=== PATIENT | female | born 2000 | race African-American/Black ===

== ENCOUNTER 2023-12-12 15:48 | Emergency (ER) | payer MEDICAID, OTHER ==
[~2023-12-12] VITALS: Ht 170.2 cm; Wt 58.3 kg
[2023-12-12 17:26] LABS: Basophils # (auto) 0 10 ^3/uL (0-0.2); Basophils % (auto) 0.4 % (0.0-2.0); Eosinophils # (auto) 0.1 10 ^3/uL (0-0.8); Eosinophils % (auto) 0.8 % (0.0-7.0); Hematocrit 40.9 % (36.0-46.0); Hemoglobin 13.8 g/dL (12.2-16.2); Lymphocytes # (auto) 1.7 10 ^3/uL (0.4-5.4); Lymphocytes % (auto) 21.6 % (10.0-50.0); Mean Corpuscular Hemoglobin 31.7 pg (28.0-32.0); Mean Corpuscular Hgb Conc. 33.8 g/dL (32.0-36.0); Mean Corpuscular Volume 93.8 fL (80.0-100.0); Monocytes # (auto) 0.8 10 ^3/uL (0-1.3); Neutrophils # (auto) 5.4 10 ^3/uL (1.6-8.6); Neutrophils % (auto) 67.2 % (37.0-80.0); Nucleated Red Blood Cells % 0.1 %; Red Blood Cells 4.36 10^6/uL (4.0-5.20); Red Cell Distribution Width 12.6 % (11.8-14.3); White Blood Cell 8.1 10^3/uL (4.4-10.8)
[2023-12-12 18:31] LABS: Urine Bacteria None Seen /hpf (None Seen)
[2023-12-12 19:08] LABS: Urine Blood Negative /uL (Negative); Urine Clarity Clear (Clear); Urine Color Yellow (Yellow); Urine Mucus FEW (None Seen); Urine Protein, UAD TRACE (Negative); Urine Specific Gravity 1.024 (1.001-1.035); Urine Urobilinogen 4 mg/dL (Negative); Urine WBC 1 /hpf (0 - 5)
[2023-12-12 19:19] VITALS: BP 115/78; TEMP 98
[2023-12-12 19:20] VITALS: PULSE 78; RESP 18; O2SAT 100
== END 2023-12-12 20:38 | disposition left against medical advice (07) ==
LOC: ER 15:48
DX: O20.9 Hemorrhage in early pregnancy, unspecified (principal); R10.2 Pelvic and perineal pain; Z3A.08 8 weeks gestation of pregnancy
CPT/HCPCS: 36415; 76801; 81001; 84702; 85025

== ENCOUNTER 2024-08-23 13:30 | Emergency (ER) | payer MEDICAID ==
[~2024-08-23] VITALS: Ht 170.2 cm; Wt 65.4 kg
[2024-08-23 13:34] VITALS: BP 132/89; RESP 20; O2SAT 97
[2024-08-23 14:03] LABS: Basophils # (auto) 0 10 ^3/uL (0-0.2); Basophils % (auto) 0.4 % (0.0-2.0); Eosinophils # (auto) 0.1 10 ^3/uL (0-0.8); Eosinophils % (auto) 1.4 % (0.0-7.0); Lymphocytes # (auto) 1.8 10 ^3/uL (0.4-5.4); Lymphocytes % (auto) 26.2 % (10.0-50.0); Mean Corpuscular Hemoglobin 32.4 pg (28.0-32.0); Mean Corpuscular Hgb Conc. 35.5 g/dL (32.0-36.0); Mean Corpuscular Volume 91.2 fL (80.0-100.0); Monocytes # (auto) 0.8 10 ^3/uL (0-1.3); Monocytes % (auto) 11.6 % (0.0-12.0); Neutrophils # (auto) 4.2 10 ^3/uL (1.6-8.6); Neutrophils % (auto) 60.4 % (37.0-80.0); Nucleated Red Blood Cells % 0.1 %; Platelet Count (auto) 354 10^3/uL (140-450); Red Blood Cells 4.93 10^6/uL (4.0-5.20); Red Cell Distribution Width 12.7 % (11.8-14.3)
[2024-08-23 14:14] LABS: Alanine Aminotransferase 11 U/L (7-40); Albumin 4.6 g/dL (3.2-4.8); Alkaline Phosphatase 57 U/L (46-116); Anion Gap 11 (5-15); Bilirubin, Total 0.6 mg/dL (0.2-1.0); Calcium 10.3 mg/dL (8.7-10.4); Carbon Dioxide 22 mmol/L (20-31); Chloride 101 mmol/L (98-107)
[2024-08-23 14:15] LABS: Total Protein 7.6 g/dL (5.7-8.2)
[2024-08-23 14:23] LABS: Aspartate Aminotransferase 12 U/L (13-40); Blood Urea Nitrogen 6 mg/dL (9-23); Glucose 117 mg/dL (74-106); Potassium 3.2 mmol/L (3.5-5.1); Sodium 134 mmol/L (136-145)
--- NOTE | 2024-08-23 14:28 | ECG ---
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
[2024-08-23] MEDS: ACETAMINOPHEN 325 MG TAB PO ONE (15:00)
[2024-08-23] MEDS: SODIUM CHLORIDE 0.9% 1,000 ML IV ONE (15:24)
[2024-08-23] MEDS: ONDANSETRON HCL 4 MG/2 ML VIAL IV ONE (15:24)
[2024-08-23 16:00] VITALS: TEMP 98.1
[2024-08-23 16:21] VITALS: PULSE 80
--- NOTE | 2024-08-23 16:24 | ECG ---
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
--- NOTE | 2024-08-23 16:56 | ED.PDOC ---
History of Present Illness HPI Comments 24y F who presents to the ED for chief complaint of multiple complaints. Pt states she is currently 8 weeks and state she is having multiple complaints. Pt states she has been having chest pain, lower abdominal cramping pain, and generalized body aches. Pt rates the pain is 7/10, cramping in nature, with no associated exacerbating or relieving factors. Pt states she was at [facility] and states she was told fetus has no heart tones and to follow up with PCP.Pt otherwise denies any associated vaginal bleeding. Pt denies any other symptoms at this time. Chief Complaint: Chest Pain Time Seen by MD: 16:48 Primary Care Provider: YOLA Montano Notes: Medications Allergies: Coded Allergies: Penicillins (Verified Allergy, Severe, 05/18/24) Information Source: Patient Mode of Arrival: Ambulatory Past Medical History PAST MEDICAL HISTORY: Denies Surgical History: Denies all surgeries RESIDENTIAL LAWN SPECIALIST History: No Pertinent RESIDENTIAL LAWN SPECIALIST History Family History Family History: Reviewed,noncontributory to illness, No family hx of Cancer, No family hx of DM, No family hx of Heart liss, No family hx of HTN, No family hx ofKidney liss, No family hx of Liver liss, No family hx of Lung liss, No family hx of Stroke Social History Smoker: Non-Smoker Alcohol: Denies ETOH Use Drugs: Denies Drug Use Lives In: Home Constitutional: reports: weakness, others (body avhes); denies: chills, diaphoresis, fatigue, fever, malaise, sweats EENTM: denies: blurred vision, double vision, ear bleeding, ear discharge, ear drainage, ear pain, ear ringing, eye pain, eye redness, hearing loss, mouth pain, mouth swelling, nasal discharge, nose bleeding, nose congestion, nose pain, photophobia, tearing, throat pain, throat swelling, voice changes, others Respiratory: denies: cough, hemoptysis, orthopnea, SOB at rest, shortness of breath, SOB with excertion, stridor, wheezing, others Cardiovascular: reports: chest pain; denies: dizzy spells, diaphoresis, Dyspnea on exertion, edema, irregular heart beat, left arm pain, lightheadedness, palpitations, PND, syncope, others Gastrointestinal: reports: abdominal pain; denies: abdomen distended, blood streaked bowels, constipated, diarrhea, dysphagia, difficulty swallowing, hematemesis, melena, nausea, poor appetite, poor fluid intake, rectal bleeding, rectal pain, vomiting, others Genitourinary: denies: abnormal vagina bleeding, burning, dyspareunia, dysuria, flank pain, frequency, hematuria, incontinence, pain, , vagina discharge, urgency, others Neurological: denies: dizziness, fainting, headache, left sided numbness, left sided weakness, numbness, paresthesia, pre-existing deficit, right sided numbness, right sided weakness, seizure, speech problems, tingling, tremors, weakness, others Musculoskeletal: denies: back pain, gout, joint pain, joint swelling, muscle pain, muscle stiffness, neck pain, others Integumetry: denies: bruises, change in color, change in hair/nails, dryness, laceration, lesions, lumps, rash, wounds, others Allergic/Immunocompromised: denies: Difficulty Healing, Frequent Infections, Hives, Itching, others Hematologic/Lymphatic: denies: anemia, blood clots, easy bleeding, easy bruising, swollen glands, others Endocrine: denies: excessive hunger, excessive sweating, excessive thirst, excessive urination, flushing, intolerance to cold, intolerance to heat, unexplained weight gain, unexplained weight loss, others Psychiatric: denies: anxiety, bipolar disorder, depression, hopeless, panic disorder, schizophrenia, sleepless, suicidal, others All Other Systems: Reviewed and Negative Physical Exam General Appearance: Other (mild distress, generalized body aches and pains) HEENT: Normal ENT Inspection, Pharynx Normal, TMs Normal Neck: Full Range of Motion, Non-Tender, Normal, Normal Inspection Respiratory: Chest Non-Tender, Lungs Clear, No Accessory Muscle Use, No Respiratory Distress, Normal Breath Sounds Cardiovascular: No Edema, No JVD, No Murmur, No Gallop, Normal Peripheral Pulses, Regular Rate/Rhythm Breast Exam: Deferred Gastrointestinal: No Organomegaly, Non Tender, No Pulsatile Mass, Normal Bowel Sounds, Soft Genitalia: Deferred Pelvic: Deferred Rectal: Deferred Extremities: No calf tenderness, Normal capillary refill, Normal inspection, Normal range of motion, Non-tender, No pedal edema Musculoskeletal : Apperance: Normal Neurologic: Alert, white work cleaner II-XII nml as Tested, No Motor Deficits, Normal Affect, Normal Mood, No Sensory Deficits Cerebellar Function: Normal Reflexes: Normal Skin: Dry, Normal Color, Warm Lymphatic: No Adenopathy Was a procedure done? Was a procedure done?: No Differential Dx Considerations may include: demise, threatened miscarriage X-Ray, Labs, Meds, VS Vital Signs Date Time Temp Pulse Resp B/P (MAP) Pulse Ox O2 Delivery O2 Flow Rate FiO2 08/23/24 16:21 80 08/23/24 16:00 98.1 08/23/24 15:00 98.9 08/23/24 14:27 87 08/23/24 13:34 98.3 107 20 132/89 (103) 97 08/23/24 13:34 99 Lab Test 08/23/24 14:54 08/23/24 13:37 08/23/24 13:32 Range/Units Troponin I High Sensitivity < 3 L < 3 L </=34 ng/L Beta HCG, Quantitative 263631.9 H 1.5-4.2 mIU/mL Urine Color Yellow Yellow Urine Clarity Turbid H Clear Urine pH 6.0 5.0-9.0 Urine Specific [place] 1.032 1.001-1.035 Urine Protein 1+ H Negative Urine Ketones 1+ H Negative Urine Blood Trace H Negative /uL Urine Nitrite Negative Negative Urine Bilirubin Negative Negative Urine Urobilinogen Normal Negative mg/dL Urine Leukocyte Esterase Negative Negative /uL Urine RBC 17 0 - 4 /hpf Urine WBC 9 0 - 5 /hpf Urine Squamous Epithelial Cells Mod <5 /hpf Urine Bacteria None seen None Seen /hpf Urine Mucus Many None Seen Urine Glucose Normal Normal mg/dL White Blood Count 7.0 4.4-10.8 10^3/uL Red Blood Count 4.93 4.0-5.20 10^6/uL Hemoglobin 16.0 12.2-16.2 g/dL Hematocrit 45.0 36.0-46.0 % Mean Corpuscular Volume 91.2 80.0-100.0 fL Mean Corpuscular Hemoglobin 32.4 H 28.0-32.0 pg Mean Corpuscular Hemoglobin Concent 35.5 32.0-36.0 g/dL Red Cell Distribution Width 12.7 11.8-14.3 % Platelet Count 354 140-450 10^3/uL Mean Platelet Volume 7.8 6.9-10.8 fL Neutrophils (%) (Auto) 60.4 37.0-80.0 % Lymphocytes (%) (Auto) 26.2 10.0-50.0 % Monocytes (%) (Auto) 11.6 0.0-12.0 % Eosinophils (%) (Auto) 1.4 0.0-7.0 % Basophils (%) (Auto) 0.4 0.0-2.0 % Neutrophils # (Auto) 4.2 1.6-8.6 10 ^3/uL Lymphocytes # (Auto) 1.8 0.4-5.4 10 ^3/uL Monocytes # (Auto) 0.8 0-1.3 10 ^3/uL Eosinophils # (Auto) 0.1 0-0.8 10 ^3/uL Basophils # (Auto) 0 0-0.2 10 ^3/uL Nucleated Red Blood Cells 0.1 % Sodium Level 134 L 136-145 mmol/L Potassium Level 3.2 L 3.5-5.1 mmol/L Chloride Level 101 98-107 mmol/L Carbon Dioxide Level 22 20-31 mmol/L Anion Gap 11 5-15 Blood Urea Nitrogen 6 L 9-23 mg/dL Creatinine 0.75 0.550-1.02 mg/dL Glomerular Filtration Rate Calc 114 >90 mL/min BUN/Creatinine Ratio 8.0 L 10.0-20.0 Serum Glucose 117 H 74-106 mg/dL Calcium Level 10.3 8.7-10.4 mg/dL Total Bilirubin 0.6 0.2-1.0 mg/dL Aspartate Amino Transferase (AST) 12 L 13-40 U/L Alanine Aminotransferase (ALT) 11 7-40 U/L Alkaline Phosphatase 57 46-116 U/L Total Protein 7.6 5.7-8.2 g/dL Albumin 4.6 3.2-4.8 g/dL Current Medications Medications (Trade) Dose Ordered Sig/Jazmin Route Start Time Stop Time Status Last Admin Sodium Chloride 1,000 ml @ 1,000 mls/hr Q1H ONCE IV 08/23/24 15:00 08/23/24 15:59 DC 08/23/24 15:24 Ondansetron HCl (Zofran) 4 mg ONCE ONCE IV 08/23/24 15:00 08/23/24 15:01 DC 08/23/24 15:24 Acetaminophen (Tylenol Tablet) 650 mg ONCE ONCE PO 08/23/24 15:00 08/23/24 15:01 DC 08/23/24 15:[address] [address] Ph: [phone] DIAGNOSTIC IMAGING Diagnostic Imaging Report : [id number] Signed PATIENT: RUTHIE ROMO ACCT: [id number] UNIT: [id number] : 2000 LOC: ER ROOM / BED: / AGE / SEX: 24 / F ADM STATUS: REG ER SERVICE [id number] ORDERING PHYSICIAN: HUMBLE RAYMOND MD PROCEDURE(s): OB4US - OB ULTRASOUND COMP LESS 14WKS REASON: abdominal pain ORDER NUMBER(s): [id number], ACCESSION NUMBER(s): [id number] OB ULTRASOUND <14 WEEKS: HISTORY: abdominal pain TECHNIQUE: Multiple real-time grayscale sonographic images of the pelvis with duplex Doppler color flow, spectral and M-mode analysis. TRANSDUCERS: Ob ultrasound COMPARISON: US OB ULTRASOUND COMP LESS 14WKS on DOS: 12/12/23 FINDINGS: The uterus measures 9.2 x 8.5 x 5.0 cm The cervix is closed Right ovary measures 2.2 x 2.4 x 1.9 cm with normal Doppler color flow. Complex right ovarian cyst is seen measuring up to 1.6 cm. Left ovary measures 1.9 x 1.7 x 1.8 cm with normal Doppler color flow. pole and yolk sac is seen at the fundus of the uterus with an estimated gestational age of 8 weeks, 4 days based on gestational sac length of 3.5 cm but an estimated gestational age of 6 weeks, 4 days based on crown-rump length of 0.68 cm. No heart rate detected. Yolk sac present. Katie-gestational space: Subchorionic hemorrhage is seen measuring up to 3.1 cm. IMPRESSION: 1. pole and yolk sac seen at the fundus of the uterus with discordant estimated gestational age (based on gestational sac length and crown-rump length) and no heart rate detected, concerning for demise. 2. Subchorionic hemorrhage measuring up to 3.1 cm. 3. Complex right ovarian cyst measures up to 1.6 cm. ATED BY: LEAH GALAN MD DICTATED DATE/TIME: 08/23/241801 SIGNED BY: LEAH GALAN MD SIGNED DATE/TIME: 08/23/241801 CC: Time of 1ST Reevaluation: 17:20 Reevaluation 1ST: Unchanged Patient Education/Counseling: Diagnosis, Treatment Family Education/Counseling: No Family Present Additional Information I reviewed the following notes from patient's past medical encounters: The following tests were ordered, and results were reviewed by me: (Labs, XY, EKG): EKG x3, CBC, CMP, troponin x3, beta HCG, UA, Additional Information was gathered from interviewing the following independent historians: (Family, Other Providers, EMT): none I reviewed and agreed with the following test results read by other providers: (X-Ray, CT, US): none I discussed treatment and results with medical personnel and: (Consultants, Family): none Departure 1 Departure Time of Disposition: 19:06 (Patient with demise. Will discharge with ob followup this week.) Impression: Primary Impression: demise before 20 weeks with retention of fetus Disposition: 01 HOME / SELF CARE / HOMELESS Condition: Stable Referrals: LESLY CEDILLO DO Additional Instructions: There is no heartbeat on ultrasound today. You should follow up with our JIG WORKER this week. A referral was placed. Please call for an appointment. For pain you can take the followinam: Ibuprofen 400mg with food Noon: Acetaminophen 1000mg 4pm: Ibuprofen 400mg with food 8pm: Acetaminophen 1000mg You should follow up with your regular doctor within one week to ensure you are doing better. If your symptoms worsen or you have any other concerns then please return to the ER. e-Prescriptions Metoclopramide Hcl (Reglan) 10 Mg Tab 10 MG PO TID PRN for 4 Days, #12 TAB Prov: HUMBLE RAYMOND MD 08/23/24 Discharged With: Self Critical Care Note Critical Care Time?: No Stability Stability form required: No Heart Score Heart Score: Heart Score Response (Comments) Value History N/A 0 EKG N/A 0 Age N/A 0 Risk Factors N/A 0 Troponin N/A 0 Total 0 I personally scribed for HUMBLE RAYMOND MD ([email or web address]) on 08/23/24 at 16:56. Elect ronically submitted by Mimi Hernandez ([email or web address]). I personally scribed for HUMBLE RAYMOND MD ([email or web address]) on 08/23/24 at 18:13. Electronically submitted by Mimi Hernandez ([email or web address]). HUMBLE RAYMOND MD Aug 23, 2024 16:56
--- NOTE | 2024-08-23 18:04 | DVH ---
OB ULTRASOUND <14 WEEKS: HISTORY: abdominal pain TECHNIQUE: Multiple real-time grayscale sonographic images of the pelvis with duplex Doppler color f low, spectral and M-mode analysis. TRANSDUCERS: Ob ultrasound COMPARISON: US OB ULTRASOUND COMP LESS 14WKS on DOS: 12/12/23 FINDINGS: The uterus measures 9.2 x 8.5 x 5.0 cm The cervix is closed Right ovary measures 2.2 x 2.4 x 1.9 cm with normal Doppler color flow. Complex right ovarian cyst is seen measuring up to 1.6 cm. Left ovary measures 1.9 x 1.7 x 1.8 cm with normal Doppler color flow. pole and yolk sac is seen at the fundus of the uterus with an estimated gestational age of 8 we eks, 4 days based on gestational sac length of 3.5 cm but an estimated gestational age of 6 weeks, 4 days based on crown-rump length of 0.68 cm. No heart rate detected. Yolk sac present. Katie-gestational space: Subchorionic hemorrhage is seen measuring up to 3.1 cm. IMPRESSION: 1. pole and yolk sac seen at the fundus of the uterus with discordant estimated gestational age (based on gestational sac length and crown-rump length) and no heart rate detected, concerning for demise. 2. Subchorionic hemorrhage measuring up to 3.1 cm. 3. Complex right ovarian cyst measures up to 1.6 cm.
[2024-08-23 18:23] LABS: Urine Bacteria None Seen /hpf (None Seen)
[2024-08-23 18:32] LABS: Urine Blood TRACE /uL (Negative); Urine Clarity Turbid (Clear); Urine Color Yellow (Yellow); Urine Mucus MANY (None Seen); Urine Protein, UAD 1+ (Negative); Urine Specific Gravity 1.032 (1.001-1.035); Urine Squamous Epithelial Cell MOD /hpf (<5); Urine Urobilinogen Normal (Negative); Urine WBC 9 /hpf (0 - 5)
[2024-08-23] MEDS ORDERED: METO-281 PO (19:08)
[2024-08-23] MEDS ORDERED: METOCLOPRAMIDE HCL 5MG/ml INJ 2ml VIAL IV ONE (19:15)
--- NOTE | 2024-08-30 18:04 | ECG ---
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
--- NOTE | 2024-08-31 15:07 | ECG ---
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
== END 2024-08-23 19:14 | disposition home or self-care (01) ==
LOC: ER 13:30
DX: O36.4XX0 Maternal care for intrauterine death, not applicable or unspecified (principal); R10.2 Pelvic and perineal pain; Z3A.08 8 weeks gestation of pregnancy; Z88.0 Allergy status to penicillin
CPT/HCPCS: 36415; 76801; 76817; 80053; 81001; 84484; 84702; 85025; 93005; 96361; 96374; 99285; J2405; J7030